=== PATIENT | male | born 1995 | race Caucasian/White ===

== ENCOUNTER 2021-11-30 12:27 | Emergency (ER) | payer MEDICAID ==
[~2021-11-30] VITALS: Ht 188 cm; Wt 69.0 kg
[2021-11-30 12:39] VITALS: BP 115/77
[2021-11-30 15:15] LABS: CHLORIDE 98 mEq/L (98-107)
[2021-11-30 15:26] LABS: HEMOGLOBIN. 14.6 g/dL (14.0-18.0); MEAN CORPUSCULAR HEMOGLOBIN 29.7 pg (28.0-32.0); MEAN CORPUSCULAR VOLUME 85.3 fL (80.0-94.0); MEAN PLATELET VOLUME 9.5 fl (7.4-10.4); PLATELET 205 x1000/uL (130-400); RED BLOOD CELL COUNT 4.92 mill/uL (4.7-6.1); RED CELL DISTRIBUTION WIDTH 13.7 % (11.6-14.6)
[2021-11-30] MEDS ORDERED: DOXY100C5 MT (18:29)
[2021-11-30] MEDS ORDERED: IBUP-2028 MT (18:29)
[2021-11-30 20:41] LABS: PLATELET ESTIMATE NORMAL
== END 2021-11-30 13:58 | disposition home or self-care (01) ==
LOC: ER 12:37
DX: R11.2 Nausea with vomiting, unspecified (principal)
CPT/HCPCS: 36415; 80053; 85025; 99283

== ENCOUNTER 2021-11-30 14:01 | Emergency (ER) | payer MEDICAID ==
[~2021-11-30] VITALS: Ht 177.8 cm; Wt 80.0 kg
[2021-11-30] MEDS ORDERED: KETOROLAC 30MG/ML VIAL IV STA (15:42)
[2021-11-30] MEDS ORDERED: ONDANSETRON HCL 4MG/2ML INJ IV STA (15:42)
[2021-11-30] MEDS ORDERED: CEFTRIAXONE 1 G PREMIX 50 ML IV ONE (15:45)
[2021-11-30] MEDS ORDERED: SODIUM CHLORIDE 0.9% 1,000 ML IV ONE (15:45)
[2021-11-30 16:43] LABS: HEMATOCRIT. 43.5 % (42.0-52.0); HEMOGLOBIN. 15.1 g/dL (14.0-18.0); MEAN CORPUSCULAR HEMOGLOBIN 29.5 pg (28.0-32.0); MEAN CORPUSCULAR VOLUME 85.3 fL (80.0-94.0); MEAN PLATELET VOLUME 9.3 fl (7.4-10.4); PLATELET 197 x1000/uL (130-400); RED CELL DISTRIBUTION WIDTH 13.3 % (11.6-14.6)
[2021-11-30 16:49] LABS: CHLORIDE 95 mEq/L (98-107)
[2021-11-30 16:49] LABS: CLARITY URINE CLEAR (CLEAR); COLOR URINE DARK YELLOW (YELLOW); KETONES URINE 1+ (NEGATIVE); LEUKOCYTE ESTERASE URINE 1+ (NEGATIVE); NITRITE URINE NEGATIVE (NEGATIVE); OCCULT BLOOD URINE NEGATIVE (NEGATIVE); PROTEIN URINE 2+ (NEGATIVE); SPECIFIC GRAVITY URINE 1.026 (1.005-1.030)
[2021-11-30 17:10] VITALS: BP 125/51
[2021-11-30] MEDS ORDERED: POTASSIUM CHLORIDE 20MEQ TABLET SR PO ONE (17:15)
[2021-11-30] MEDS ORDERED: IBUP-2028 MT (18:29)
[2021-11-30] MEDS ORDERED: DOXY100C5 MT (18:29)
[2021-11-30 20:42] LABS: PLATELET ESTIMATE NORMAL
[2021-12-05 04:11] LABS: NEISSERIA GONORRHOEAE NAA Positive (Negative)
== END 2021-11-30 18:49 | disposition home or self-care (01) ==
LOC: ER 14:01
DX: R10.9 Unspecified abdominal pain (principal); R11.10 Vomiting, unspecified; R19.7 Diarrhea, unspecified; N43.3 Hydrocele, unspecified; R36.9 Urethral discharge, unspecified; Z20.2 Contact with and (suspected) exposure to infections with a predominantly sexual mode of transmission; Z20.822 Contact with and (suspected) exposure to COVID-19
CPT/HCPCS: 36415; 74176; 76870; 80053; 81003; 83690; 85025; 87086; 87426; 87491; 87591; 93976; 96365; 96375; 99285; C9803; J0696; J1885; J2405; J7030

== ENCOUNTER 2021-12-02 07:48 | Emergency (ER) | payer MEDICAID ==
[~2021-12-02] VITALS: Ht 188 cm; Wt 68.0 kg
[~2021-12-02 07:48] MED LIST: DOXY100C5 MT; IBUP-2028 MT
[2021-12-02 07:55] VITALS: BP 124/82
[2021-12-02] MEDS ORDERED: ONDANSETRON 4MG ODT PO ONE (08:30)
[2021-12-02] MEDS ORDERED: KETOROLAC 15MG/ML VIAL IM ONE (08:30)
[2021-12-02 08:57] LABS: CLARITY URINE CLEAR (CLEAR); COLOR URINE YELLOW (YELLOW); KETONES URINE 1+ (NEGATIVE); LEUKOCYTE ESTERASE URINE 1+ (NEGATIVE); NITRITE URINE NEGATIVE (NEGATIVE); OCCULT BLOOD URINE TRACE (NEGATIVE); PH URINE 6.5 (4.5-8.0); PROTEIN URINE 1+ (NEGATIVE)
[2021-12-02 09:01] LABS: CHLORIDE 96 mEq/L (98-107)
[2021-12-02 09:04] LABS: BASOPHILS % 0.2 % (0.0-2.0); HEMOGLOBIN. 13.4 g/dL (14.0-18.0); LYMPHOCYTES % 8.6 % (20.0-50.0); MEAN CORPUSCULAR HEMOGLOBIN 29.5 pg (28.0-32.0); MEAN CORPUSCULAR VOLUME 85.8 fL (80.0-94.0); MEAN PLATELET VOLUME 8.8 fl (7.4-10.4); MONOCYTES % 11.3 % (2.0-8.0); NEUTROPHILS % 79.9 % (40.0-76.0); PLATELET 194 x1000/uL (130-400); RED BLOOD CELL COUNT 4.55 mill/uL (4.7-6.1); RED CELL DISTRIBUTION WIDTH 13.4 % (11.6-14.6)
[2021-12-02 09:09] LABS: ETHANOL BLOOD < 10 mg/dL
[2021-12-02 09:15] LABS: *AMPHETAMINES SCREEN URINE NEGATIVE (NEGATIVE); *BARBITURATES SCREEN URINE NEGATIVE (NEGATIVE); *BENZODIAZEPINES SCREEN URINE NEGATIVE (NEGATIVE); *COCAINE SCREEN URINE NEGATIVE (NEGATIVE); CANNABINOID URINE SCREEN PRESUMTIVE POSITIVE (NEGATIVE); METHADONE URINE SCREEN NEGATIVE (NEGATIVE); OPIATES URINE SCREEN NEGATIVE (NEGATIVE); PHENCYCLIDINE URINE SCREEN NEGATIVE (NEGATIVE)
[2021-12-02] MEDS ORDERED: CEFTRIAXONE 1 G PREMIX 50 ML IV ONE (10:00)
[2021-12-02] MEDS ORDERED: CEPH500C2 MT (10:03)
== END 2021-12-02 11:39 | disposition home or self-care (01) ==
LOC: ER 07:48
DX: N39.0 Urinary tract infection, site not specified (principal); N43.3 Hydrocele, unspecified; F12.10 Cannabis abuse, uncomplicated
CPT/HCPCS: 36415; 71045; 76705; 80053; 80305; 80320; 81003; 83605; 83690; 85025; 96365; 96372; 99285; J0696; J1885; Q0162; G0480

== ENCOUNTER 2021-12-02 15:24 | Emergency (ER) | payer MEDICAID ==
[~2021-12-02] VITALS: Ht 188 cm; Wt 68.0 kg
[~2021-12-02 15:24] MED LIST changes: +CEPH500C2 MT
[2021-12-02] MEDS ORDERED: METOCLOPRAMIDE HCL 10MG/2ML VIAL IV STA (17:25)
[2021-12-02] MEDS ORDERED: SODIUM CHLORIDE 0.9% 1,000 ML IV ONE (17:30)
[2021-12-02] MEDS ORDERED: KETOROLAC 15MG/ML VIAL IV ONE (18:00)
[2021-12-02 18:03] VITALS: BP 106/76
== END 2021-12-02 19:44 | disposition home or self-care (01) ==
LOC: ER 15:24
DX: E86.0 Dehydration (principal); R50.9 Fever, unspecified; R11.2 Nausea with vomiting, unspecified; F12.10 Cannabis abuse, uncomplicated; Z20.822 Contact with and (suspected) exposure to COVID-19
CPT/HCPCS: 87426; 87804; 96361; 96374; 96375; 99284; C9803; J1885; J2765; J7030